=== PATIENT | male | born 1970 | race Caucasian/White ===

== ENCOUNTER 2023-06-20 04:43 | Emergency (ER) | payer OTHER, SELFPAY ==
[2023-06-20 04:46] VITALS: BP 140/92; PULSE 69; RESP 16; TEMP 37.8; O2SAT 96; BMI 20.9
--- NOTE | 2023-06-20 04:53 | ED.SOB ---
HPI - SOB/Dyspnea General Time Seen by Provider: 04:53 Date Seen: 06/20/23 Chief Complaint: Shortness of Breath/Dyspnea Stated Complaint: covid + trouble breathing Time Seen by Provider: 06/20/23 04:48 Source: patient, RN notes reviewed and old records reviewed Mode of arrival: ambulatory Limitations: no limitations History of Present Illness HPI Narrative: 53-year-old male who comes in today with shortness of breath. Patient COVID positive 2 days ago, short of breath today. Reports home oxygen of 90%. No chest pain. Slight cough. Took ibuprofen prior to coming the emergency department. Does not smoke, no prior lung disease. Related Data Previous Rx's Medication Instructions Recorded nirmatrelvir 300 mg (150 mg See Rx Instructions PO .COMPLEX 06/20/23 x2)-ritonavir 100 mg tablet,dose #30 ea pack (Paxlovid) Allergies Allergy/AdvReac Type Severity Reaction Status Date / Time No Known Drug Allergies Allergy Verified 06/20/23 04:50 PFSH PFSH Social History Smoking Status: Never smoker Do you use any of these nicotine containing products: None How often do you have a drink containing alcohol: 2-3 times a week AUDIT-C Alcohol total score: 3 Non-prescribed substance use: denies use Exam Narrative: Exam Narrative: General: Well-developed and well-nourished, no acute distress Head: Atraumatic and normocephalic Eyes: Pupils are equal reactive, extraocular motions intact, conjunctiva clear ENT: External nose and ears are normal, posterior pharynx without erythema or exudate Neck: No midline cervical tenderness, full spontaneous range of motion the neck, trachea midline, no adenopathy Heart: Regular rate and rhythm no murmurs or thrills Lungs: Clear to auscultation bilaterally without wheezes or crackles Abdomen: Soft, nontender, nondistended with active bowel sounds Musculoskeletal: No tenderness, deformity, or edema Neurologic: Awake, alert, and oriented x3, no gross focal neurologic deficits, cranial nerves intact as tested Psych: Mood and affect are appropriate Skin: No rashes Const: Vital Signs, click to edit/add: Vital Signs - 24 hr 06/20/23 04:46 Temperature 100.1 F H Pulse Rate [Pulse Oximeter] 69 Respiratory Rate 16 Blood Pressure [Ri ght Upper Arm] 140/92 H Pulse Oximetry 96 Oxygen Delivery Me thod Room Air Course Course ED Course: Patient seen examined, prior records reviewed. Patient COVID positive, presents with shortness of breath and reported oxygen saturation 90% at home. Oxygen saturation 96-97% on room air in the emergency department, lungs clear. Labs ordered to evaluate for possible pulmonary embolism, Decadron will be given. Patient has no risk factors and Paxlovid not indicated. Reevaluation(s) Time of Reevaluation #1: 06:05 Reevaluation #1: Labs independently interpreted by me with normal basic metabolic panel, troponin elevated at 0.95. CT PE study will be ordered and if this is negative plan to discharge. Time of Reevaluation #2: 06:49 Reevaluation #2: CT scan independently interpreted by me does not demonstrate any acute central pulmonary embolism, trace bilateral atelectasis versus is mild infiltrates. No hypoxia, no tachycardia, no respiratory distress. Patient is stable for discharge. Vital Signs Vital signs: Initial Vital Signs Temperature 100.1 F H 06/20/23 04:46 Temperature Source Temporal Artery Scan 06/20/23 04:46 Pulse Rate 69 06/20/23 04:46 Respiratory Rate 16 06/20/23 04:46 Blood Pressure 140/92 H 06/20/23 04:46 Blood Pressure Mean 108 H 06/20/23 04:46 Blood Pressure Position Sitting 06/20/23 04:46 Pulse Oximetry 96 06/20/23 04:46 Oxygen Delivery Method Room Air 06/20/23 04:46 Vital Signs Temperature 100.1 F H 06/20/23 04:46 Pulse Rate 69 06/20/23 04:46 Respiratory Rate 16 06/20/23 04:46 Blood Pressure 140/92 H 06/20/23 04:46 Pulse Oximetry 96 06/20/23 04:46 Oxygen Delivery Method Room Air 06/20/23 04:46 Temperature 100.1 F H 06/20/23 04:46 Pulse Rate 66 06/20/23 07:34 Respiratory Rate 20 06/20/23 07:34 Blood Pressure 124/77 06/20/23 07:34 Pulse Oximetry 94 06/20/23 07:34 Oxygen Delivery Method Room Air 06/20/23 07:34 Medications Administered Medications: Discontinued Medications Generic Name Dose Route Start Last Admin Trade Name Freq PRN Reason Stop Dose Admin Dexamethasone 10 mg 06/20/23 05:02 06/20/23 05:12 Dexamethasone 4 Mg/Ml Vial IV 06/20/23 05:03 10 mg ONCE ONE Administration MDM - SOB/Dyspnea Lab Data Labs: Lab Results 06/20/23 Range/Units 05:15 D-Dimer Quant (PE/DVT) 0.95 H (0.00-0.50) ug/ml Sodium 136 (135-149) mmol/L Potassium 3.8 (3.6-5.1) mmol/L Chloride 100 (96-114) mmol/L Carbon Dioxide 28 (20-32) mmol/L Anion Gap 8 (7-15) mEq/L BUN 15 (7-30) mg/dL Creatinine 0.9 (0.5-1.5) mg/dL Estimated Creat Clear 90.30 Estimated GFR 101 ml/min Glucose 124 H (60-115) mg/dL Calcium 8.9 (8.4-10.6) mg/dL Discharge Plan Discharge Clinical Impression: COVID-19 Patient Disposition: Home, Self-Care Condition: Stable Instructions: COVID-19 (Coronavirus Disease 2019) (ED) Additional Instructions: Tylenol and ibuprofen as needed for body aches and fever Activity Level: Activity as Tolerated Discharge Diet: Regular Prescriptions: New Paxlovid 300 mg (150 mg x 2)-100 mg tablets,dose pack See Rx Instructions .ROUTE .COMPLEX Qty: 30 0RF Rx Instructions: take TWO 150 mg tablets of nirmatrelvir with ONE 100 mg tablet of ritonavir twice daily for 5 days Follow Up/Referrals: Wilian Abernathy MD [Primary Care Provider] - Stand Alone Forms: [employer] Info Instructions
[2023-06-20] MEDS: dexAMETHasone 4 MG/ML VIAL 10 MG IV (05:12)
[2023-06-20 05:34] LABS: Chloride* 100 mmol/L (96-114); Potassium* 3.8 mmol/L (3.6-5.1); Sodium* 136 mmol/L (135-149)
[2023-06-20 05:36] LABS: Creatinine* 0.9 mg/dL (0.5-1.5); Estimated Glomerular Filt Rate 101 ml/min
[2023-06-20 05:37] LABS: Anion Gap 8 mEq/L (7-15); Blood Urea Nitrogen* 15 mg/dL (7-30); Calcium* 8.9 mg/dL (8.4-10.6); Carbon Dioxide* 28 mmol/L (20-32); Glucose* 124 mg/dL (60-115)
[2023-06-20 05:38] LABS: D Dimer Quantitative* 0.95 ug/ml (0.00-0.50)
--- NOTE | 2023-06-20 06:06 | CRLHL7_ITS ---
For Patients: As a result of the Century Cures Act, medical imaging exams and procedure reports are released immediately into your electronic medical record. You may view this report before your referring provider. If you have questions, please contact your health care provider. INDICATION: Shortness of breath, elevated D-dimer and COVID infection TECHNIQUE: CT chest PE was acquired with 95 cc Isovue 370 intravenous contrast. COMPARISON: None. FINDINGS: Heart and vasculature: Contrast opacification of the pulmonary arterial tree is adequate. No sign of pulmonary embolism. Heart size is normal. Thoracic aorta and pulmonary artery are normal in caliber. Lungs and pleural: No pleural effusion or pneumothorax with areas of discoid atelectasis in the lung bases. Lymph nodes/mediastinum: No mediastinal, hilar, or axillary adenopathy. Chest wall: No masses. Upper abdomen: Normal. Bones: Unremarkable for age. IMPRESSION: 1. No evidence of pulmonary embolus. 2. Scattered areas of discoid atelectasis in the lung bases. Please note that all CT scans at this facility use dose modulation, iterative reconstruction, and/or weight-based dosing when appropriate to reduce radiation dose to as low as reasonably achievable. Dictated by Fabián Catalan MD @ 06/20/2023 7:24:25 AM (Electronically Signed)
[2023-06-20 07:34] VITALS: BP 124/77; PULSE 66; RESP 20; O2SAT 94
== END 2023-06-20 08:21 | disposition home or self-care (01) ==
PROVIDERS: Emergency Provider Family Medicine; PCP Family Medicine
DX: U07.1 COVID-19 (principal)
CPT/HCPCS: 36415; 71275; 80048; 85379; 96374; 99284; 99285; J1100; Q9967